=== PATIENT | female | born 1980 | race Caucasian/White ===

== ENCOUNTER → 2016-11-19 | Outpatient (CLI) | payer OTHER ==
--- NOTE | 2016-11-19 11:21 | US ---
EXAMINATION TYPE: US thyroid st tissue head/neck DATE OF EXAM: 11/19/2016 COMPARISON: 01-28 CLINICAL HISTORY: E04.1 Thyroid nodule. F/U GLAND SIZE: Right Lobe: 4.9 x 1.6 x 1.8 cm Overall Parenchyma: homogenous Left Lobe: 4.8 x 1.2 x 1.5 cm Overall Parenchyma: homogeneous Isthmus Thickness: 0.3 cm NODULES RIGHT: # of nodules measured on right: 1 1. 0.9 X 0.7 x 0.7 cm hypoechoic solid nodule at the mid pole with well-defined margins; This nodu le is wider than tall and shows intranodular vascularity. Prior size: 0.9 x 0.6 x 0.8 cm LEFT: # of nodules measured on left: 3 1. 0.9 X 0.5 x 0.7 cm hypoechoic solid nodule at the mid pole with well-defined margins; This nodu le is wider than tall and shows intranodular vascularity. Prior size: 0.9 x 0.5 x 0.9 cm 2. 0.8 X 0.4 x 0.6 cm hypoechoic mixed nodule at the lower pole with well-defined margins; This nod ule is wider than tall and shows intranodular vascularity. Prior size: 0.8 x 0.5 x 0.8 cm 3. 0.4 X 0.3 x 0.4 cm hypoechoic solid nodule at the lower pole with well-defined margins; This nod ule is wider than tall and shows intranodular vascularity. Prior size: 0.4 x 0.3 x 0.4 cm ISTHMUS: # of nodules measured in the isthmus: 0 Bilateral neck scanned, no evidence of lymphadenopathy. Stable nodules bilaterally IMPRESSION: Nonspecific nodularity is seen bilaterally and is essentially unchanged.
== END | disposition home or self-care (01) ==
LOC: RADUSWWP 10:22
PROVIDERS: ATTEND Otolaryngology
DX: E04.2 Nontoxic multinodular goiter (principal)
CPT/HCPCS: 76536

== ENCOUNTER → 2016-12-21 | Outpatient (CLI) | payer OTHER ==
--- NOTE | 2016-12-21 12:20 | US ---
EXAMINATION TYPE: US abdomen complete DATE OF EXAM: 12/21/2016 COMPARISON: NONE CLINICAL HISTORY: 36-year-old female K59.00 Constipation, R10.11 RUQ Pain. TECHNIQUE: Multiple sonographic images of the abdomen are obtained. FINDINGS: Liver Length: 11.0 cm Gallbladder Wall: 0.2 cm CBD: 0.3 cm Spleen: 9.4 cm Right Kidney: 9.3 x 3.3 x 4.9 cm Left Kidney: 9.2 x 4.7 x 4.7 cm Pancreas: wnl Liver: wnl Gallbladder: wnl Evidence for sonographic Allen's sign: No CBD: wnl Spleen: wnl Right Kidney: No hydronephrosis. Left Kidney: Mild pelvicaliectasis. This kidney is not as well-visualized. Upper IVC: wnl Abd Aorta: bifurcation obscured by overlying bowel gas IMPRESSION: 1. Mild left-sided pelvicaliectasis. This may be transient. Short interval follow-up can be considere d. Correlate to exclude any symptoms of renal colic. 2. Otherwise, no specific abnormality seen in the abdomen.
== END ==
LOC: RADUSMAIN 09:36
PROVIDERS: ATTEND Family Medicine
DX: N13.30 Unspecified hydronephrosis (principal)
CPT/HCPCS: 76700

== ENCOUNTER → 2017-01-07 | Outpatient (CLI) | payer OTHER ==
--- NOTE | 2017-01-07 09:33 | NM ---
EXAMINATION TYPE: NM hepatobiliary w EF DATE OF EXAM: 01/07/2017 COMPARISON: Ultrasound 12/21/2016 HISTORY: 36 year-old female right upper quadrant pain TECHNIQUE: After the intravenous administration of 5.36 mCi Tc 99m Mebrofenin hepatobiliary scintigra phy is performed. Immediate images post injection. FINDINGS: There is satisfactory initial accumulation of tracer by the liver. The gallbladder is visualized wit hin 6 minutes. The small bowel activity is noted after 60 minutes once Ensure is ingested. At one ho ur 8 ounces of oral Ensure plus is given to mimic CCK and gallbladder ejection fraction is calculated at 22 %, which is diminished. IMPRESSION: 1. No evidence for acute cholecystitis. 2. Diminished gallbladder ejection fraction. Given the normal appearance of the gallbladder on 017, findings probably reflect biliary dyskinesia.
== END | disposition home or self-care (01) ==
LOC: RADNMMAIN 07:06
PROVIDERS: ATTEND Family Medicine
DX: R10.11 Right upper quadrant pain (principal)
CPT/HCPCS: 78226; A9537

== ENCOUNTER 2017-03-25 07:45 | Day surgery (SDC) | payer OTHER ==
[2017-03-17 10:56] VITALS: BMI 19.7
[~2017-03-25 07:45] MED LIST: CLINDAMYCIN 900 MG in DEXTROSE 5% IN WATER 50 ML IVPB ONE; DEXAMETHASONE SOD PHOSPHATE 10 MG/ML 1 ML VIAL IV ONE; GENTAMICIN 240 MG in SODIUM CHLORIDE 0.9% 100 ML IVPB ONE; HEPARIN SODIUM,PORCINE 5,000 UNIT/ML 1 ML VIAL SQ ONE; LACTATED RINGERS 1,000 ML IV SCH; MIDAZOLAM 2 MG/2 ML VIAL IV PRN; MORPHINE SULFATE 4 MG/ML SYRINGE IV PRN; ONDANSETRON 4 MG/2 ML VIAL IVP ONE; SCOPOLAMINE 1.5MG/72HR PATCH TRANSDERM ONE
[2017-03-25 08:21] VITALS: RESP 16
[2017-03-25] MEDS ORDERED: LIDOCAINE 1% 20 ML VIAL (10MG/ML) FOR IV START INTRADERMA ONE (08:30)
[2017-03-25] MEDS ORDERED: BUPIVACAINE (PF) 0.25% 30 ML VIAL SQ ONE ×4 (09:24→10:23)
[2017-03-25] MEDS ORDERED: NEOSTIGMINE 1 MG/ML 10 ML VIAL ONE (09:32)
[2017-03-25] MEDS ORDERED: GLYCOPYRROLATE 0.2 MG/ML 2 ML VIAL ONE (09:32)
[2017-03-25] MEDS ORDERED: PROPOFOL 10 MG/ML 20 ML VIAL IV ONE (09:32)
[2017-03-25] MEDS ORDERED: SUCCINYLCHOLINE CHLORIDE 100 MG/5 ML SYR IV ONE (09:32)
[2017-03-25] MEDS ORDERED: fentaNYL (PF) 50 MCG/ML 2 ML AMP ONE (09:32)
[2017-03-25] MEDS ORDERED: HYDROmorphone (PF) 1 MG/ML ONE (09:32)
[2017-03-25] MEDS ORDERED: ROCURONIUM BROMIDE 10 MG/ML 10 ML VIAL IV ONE (09:32)
[2017-03-25] MEDS ORDERED: LIDOCAINE 1% INJ 10MG/ML (20 ML MDV) ONE (09:32)
[2017-03-25] MEDS ORDERED: MIDAZOLAM 2 MG/2 ML VIAL ONE (09:32)
[2017-03-25] MEDS ORDERED: traMADol 50 MG TAB PO PRN (10:27)
[2017-03-25] MEDS ORDERED: NALOXONE 0.4 MG/ML 1 ML VIAL IV PRN (10:27)
--- NOTE | 2017-03-25 10:31 | P.OP ---
Date of Procedure: 03/25/17 Procedure(s) Performed: PREOPERATIVE DIAGNOSIS: Biliary dyskinesia POSTOPERATIVE DIAGNOSIS: Same PROCEDURE: Laparoscopic cholecystectomy SURGEON: Gaby EBL: Minimal see anesthesia record ANESTHESIA: Gen. COMPLICATIONS: None OPERATIVE PROCEDURE: The patient was brought and placed on the operating room table in the supine position. The patient was placed under general anesthesia at that time. The abdomen was prepped and draped in the usual sterile fashion. A small vertical infraumbilical incision was made. The fascia was grasped with the Orin forceps. The fascia was retracted anteriorly. The Veress needle was advanced into the peritoneal cavity. The saline drop test was normal. Insufflation took place up to 15 mmHg. A 5 mm optical trocar was advanced and the peritoneal cavity. 2 additional 5 mm trochars were placed in the right upper quadrant under direct visualization. A 10 mm trocar was advanced into the epigastric incision site. This was later switched to a 12 mm trocar. The gallbladder was retracted superiorly and laterally. The peritoneum overlying the infundibulum was bluntly dissected. The patient's cystic duct was visualized. The junction between the cystic duct common and hepatic duct was identified. The critical view was achieved. The cystic duct was slightly distended. The cystic duct was then divided after placement of 3 12 mm clips on the patient's side and one on the specimen side. The cystic artery was identified and clipped as well. A small vessel was seen along the gallbladder fossa and clipped as well. The gallbladder was then removed from the liver bed using electrocautery. The gallbladder was then removed from the epigastric trocar site with an Endo Catch bag. The gallbladder fossa was irrigated with saline. There was no evidence of any bleeding or biliary drainage seen. The trochars were then removed. The fascia at the 12 millimeter site was closed using a Zeus Ji 0 Vicryl stitch. The skin at all 4 sites was closed using a 4-0 Monocryl stitch. At the end of this procedure the sponge and needle counts were correct. DISPOSITION: Stable to the recovery room
[2017-03-25 10:56] VITALS: TEMP 98.2
[2017-03-25] MEDS ORDERED: HYDROmorphone 0.5 MG/0.5 ML SYRINGE IVP ONE (11:15)
[2017-03-25] MEDS ORDERED: ONDANSETRON 4 MG/2 ML VIAL IVP ONE (11:18)
[2017-03-25] MEDS ORDERED: diphenhydrAMINE 50 MG/ML 1 ML VIAL IVP ONE (11:31)
[2017-03-25] MEDS ORDERED: IV FLUID CONTINUATION 1,000 ML IV ONE (12:59)
[2017-03-25] MEDS ORDERED: LACTATED RINGERS 1,000 ML IV ONE (13:18)
[2017-03-25] MEDS ORDERED: METOCLOPRAMIDE 5 MG/ML 2 ML VIAL IVP ONE (13:22)
[2017-03-25] MEDS ORDERED: traMADol 50 MG TAB PO ONE (14:17)
[2017-03-25 15:03] VITALS: BP 113/72; PULSE 73
== END 2017-03-25 15:04 | disposition home or self-care (01) ==
LOC: OR 07:45
PROVIDERS: ATTEND Surgery
DX: K81.1 Chronic cholecystitis (principal); J45.909 Unspecified asthma, uncomplicated; Z85.820 Personal history of malignant melanoma of skin; Z88.6 Allergy status to analgesic agent; Z88.0 Allergy status to penicillin; Z88.2 Allergy status to sulfonamides; Z88.8 Allergy status to other drugs, medicaments and biological substances; Z79.899 Other long term (current) drug therapy
CPT/HCPCS: 81025; 88304; 47562; J2250; J1200; J1644; J1100; J2710; J2765; J2405; J2001; J3010; J1580; J1170 ×2; J0330; J2704

== ENCOUNTER → 2018-02-09 | Outpatient (CLI) | payer OTHER ==
--- NOTE | 2018-02-09 12:50 | US ---
EXAMINATION TYPE: US thyroid st tissue head/neck DATE OF EXAM: 02/09/2018 COMPARISON: 11/19/2016 CLINICAL HISTORY: E04.1 Thyroid Nodule. Follow up thyroid nodules, tiredness GLAND SIZE: Right Lobe: 4.4 x 1.5 x 1.7 cm Overall Parenchyma: homogenous Left Lobe: 4.8 x 1.4 x 1.6 cm Overall Parenchyma: homogeneous Isthmus Thickness: 0.2 cm NODULES RIGHT: # of nodules measured on right: 1 1. 1.0 X 0.7 x 0.8 cm hypoechoic solid nodule at the mid pole with well-defined margins; . This no dule is wider than tall and shows intranodular vascularity. Prior size: 0.9 x 0.7 x 0.7 cm LEFT: # of nodules measured on left: 3 1. 0.9 X 0.6 x 0.6 cm hypoechoic solid nodule at the mid pole with well-defined margins; . This no dule is wider than tall and shows intranodular vascularity. Prior size: 0.9 x 0.5 x 0.7 cm 2. 0.7 X 0.5 x 0.6 cm hypoechoic mixed nodule at the lower pole with well-defined margins; . This n odule is wider than tall and shows intranodular vascularity. Prior size: 0.8 x 0.4 x 0.6 cm 3. 0.5 X 0.3 x 0.4 cm hypoechoic solid nodule at the lower pole with well-defined margins; . This n odule is wider than tall and shows intranodular vascularity. Prior size: 0.4 x 0.3 x 0.4 cm ISTHMUS: # of nodules measured in the isthmus: 0 Bilateral neck scanned, no evidence of lymphadenopathy. IMPRESSION: Nonspecific thyroid nodularity. Stable.
== END | disposition home or self-care (01) ==
LOC: RADUSWWP 12:07
PROVIDERS: ATTEND Otolaryngology
DX: E04.2 Nontoxic multinodular goiter (principal)
CPT/HCPCS: 76536

== ENCOUNTER → 2019-04-17 | Outpatient (CLI) | payer OTHER ==
--- NOTE | 2019-04-17 13:40 | US ---
EXAMINATION TYPE: US thyroid st tissue head/neck DATE OF EXAM: 04/17/2019 COMPARISON: US 02/09/2018 CLINICAL HISTORY: E04.1 nontoxic nodule. Follow up GLAND SIZE: Right Lobe: 4.3 x 1.3 x 1.2 cm Overall Parenchyma: homogenous Left Lobe: 5.3 x 1.2 x 1.4 cm Overall Parenchyma: homogeneous Isthmus Thickness: 0.2 cm NODULES RIGHT: # of nodules measured on right: 1 1. 0.9 X 0.6 x 0.8 cm hypoechoic mixed nodule at the mid pole with well-defined margins; . This no dule is wider than tall and shows intranodular vascularity. Prior size: 1.0 X 0.7 x 0.8 cm LEFT: # of nodules measured on left: 2- Innumerable subcentimeter nodules visualized, largest 2: 1. 0.9 X 0.5 x 0.6 cm hypoechoic solid nodule at the mid pole with well-defined margins; . This no dule is wider than tall and shows intranodular vascularity. Prior size: 0.9 X 0.6 x 0.6 cm 2. 0.7 X 0.4 x 0.7 cm hypoechoic mixed nodule at the mid pole with well-defined margins; . This nod ule is wider than tall and shows intranodular vascularity. Prior size: 0.7 X 0.5 x 0.6 cm ISTHMUS: # of nodules measured in the isthmus: 0 Bilateral neck scanned, no evidence of lymphadenopathy. IMPRESSION: 1. Bilateral subcentimeter nodules
== END | disposition home or self-care (01) ==
LOC: RADUSWWP 10:20
PROVIDERS: ATTEND Otolaryngology
DX: E04.2 Nontoxic multinodular goiter (principal)
CPT/HCPCS: 76536

== ENCOUNTER → 2020-10-29 | Outpatient (CLI) | payer OTHER ==
[2020-10-29 11:13] LABS: Basophils # (A) 0.1 k/uL (0-0.2); Basophils % (A) 1 %; Eosinophils # (A) 0.8 k/uL (0-0.7); Eosinophils % (A) 9 %; HCT 43.9 % (34.0-46.0); HGB 14.2 gm/dL (11.4-16.0); Lymphocytes % (A) 12 %; MCH 31.5 pg (25.0-35.0); MCHC 32.4 g/dL (31.0-37.0); MCV 97.4 fL (80.0-100.0); Mean Platelet Volume 6.6; Monocytes # (A) 0.7 k/uL (0-1.0); Monocytes % (A) 8 %; Neutrophils # (A) 5.6 k/uL (1.3-7.7); Neutrophils % (A) 67 %; Platelet Count 264 k/uL (150-450); WBC 8.3 k/uL (3.8-10.6)
== END | disposition home or self-care (01) ==
LOC: LABPAT 10:10
PROVIDERS: ATTEND Obstetrics & Gynecology
DX: Z01.812 Encounter for preprocedural laboratory examination (principal); N92.0 Excessive and frequent menstruation with regular cycle; N84.0 Polyp of corpus uteri
CPT/HCPCS: 36415; 85025

== ENCOUNTER 2020-11-04 08:20 | Day surgery (SDC) | payer OTHER ==
[2020-10-31 09:07] VITALS: BMI 20.5
--- NOTE | 2020-11-03 14:51 | HP ---
HISTORY AND PHYSICAL REASON FOR ADMISSION: Surgery dated 11/04/2020. HISTORY: This is a 40-year-old 3, para 3-0-0-3 woman with a history of dysfunctional uterine bleeding and findings of endometrial polyp on pelvic ultrasound. Ultrasound dated 07/09/2020, had findings of a 0.9 x 0.9 x 0.6 cm endometrial structure consistent with endometrial polyps. She is also noted to have 2.6 cm and 1.8 cm left ovarian hemorrhagic cyst. She is scheduled to undergo diagnostic hysteroscopy with D and C and polypectomy. Due to her longstanding history of menorrhagia, she is also going to undergo NovaSure endometrial ablation for cycle of management. ALLERGIES: NAPROXEN CAUSES FACE SWELLING. NSAIDS CAUSES FACE SWELLING. PENICILLIN CAUSES RASH AND HIVES. SULFA CAUSES RASH AND HIVES. TRAMADOL CAUSES NAUSEA AND VOMITING. ZYRTEC CAUSES FACIAL SWELLING. MEDICATIONS: Allergy injections, Benadryl p.r.n., probiotics daily. PAST MEDICAL HISTORY: Asthma, IBS, history of melanoma. PAST SURGICAL HISTORY: Cholecystectomy, melanoma excision in 2001 and 2008, cervical LEEP procedure 2002. 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 Her partner has had a vasectomy. She has a remote history of abnormal Pap smear and LEEP procedure. FAMILY HISTORY: Significant for breast cancer in a grandmother. SOCIAL HISTORY: Negative for tobacco, alcohol, and drug use. 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 REVIEW OF SYSTEMS: A complete review of systems is negative except for that menstrual history described above. PHYSICAL EXAM: VITAL SIGNS: Blood pressure 106/82, pulse 74, weight 122 pounds, height 5 feet 3 inches. GENERAL: This is a pleasant female in no obvious distress. HEENT exam is unremarkable and was negative for lymphadenopathy and thyromegaly. LUNGS: Clear to auscultation bilaterally. HEART has a regular rate and rhythm. ABDOMEN is slim, soft and nontender with no rebound, no guarding and no flank pain. On pelvic examination, she has normal female external genitalia without lesions or irritation. The uterus is small, freely mobile and in the midline with no palpable adnexal abnormalities. NEUROLOGIC: The patient has no gross neurologic deficits. Mood and affect are appropriate. ASSESSMENT: This is a 40-year-old 3, para 3 woman with findings of endometrial polyp on ultrasound as well as history of dysfunctional uterine bleeding. She is scheduled to undergo diagnostic hysteroscopy with D and C, polypectomy as well as NovaSure endometrial ablation. This procedure, anticipated hospital course, and recovery time have been reviewed. Risks were reviewed and include, but are not limited to bleeding, infection, uterine perforation with damage to internal structures including bowel, bladder, blood vessels or nerves, the possible risk of ongoing bleeding. Patient understands that she should not attempt pregnancies following this procedure. Her has had a vasectomy. All questions were answered and consent was obtained. She is scheduled for the above-named procedure on 11/04/2020. MMODL / IJN: [id number] /
[~2020-11-04 08:20] MED LIST changes: -CLINDAMYCIN 900 MG in DEXTROSE 5% IN WATER 50 ML IVPB ONE; -DEXAMETHASONE SOD PHOSPHATE 10 MG/ML 1 ML VIAL IV ONE; +DEXAMETHASONE SOD PHOSPHATE 4 MG/ML 1 ML VIAL IV ONE; -GENTAMICIN 240 MG in SODIUM CHLORIDE 0.9% 100 ML IVPB ONE; -HEPARIN SODIUM,PORCINE 5,000 UNIT/ML 1 ML VIAL SQ ONE; +HYDROmorphone 0.5 MG/0.5 ML SYRINGE IVP PRN; -LACTATED RINGERS 1,000 ML IV SCH; +LIDOCAINE 1% (10MG/ML) FOR IV START INTRADERMA PRN; -MIDAZOLAM 2 MG/2 ML VIAL IV PRN; -MORPHINE SULFATE 4 MG/ML SYRINGE IV PRN; +Pre Op ABX Message 1 EACH MISC MISCELLANE ONE
[2020-11-04] MEDS: LACTATED RINGERS 1,000 ML IV SCH ×3 (08:58→13:27)
[2020-11-04] MEDS ORDERED: fentaNYL (PF) 50 MCG/ML 2 ML AMP ONE (10:16)
[2020-11-04] MEDS ORDERED: MIDAZOLAM 2 MG/2 ML VIAL ONE (10:16)
[2020-11-04] MEDS ORDERED: KETOROLAC 15 MG/ML 1 ML VIAL ONE (10:16)
[2020-11-04] MEDS ORDERED: PROPOFOL 10 MG/ML 20 ML VIAL IV ONE (10:16)
[2020-11-04] MEDS ORDERED: LIDOCAINE 1% INJ 10MG/ML (20 ML MDV) ONE (10:16)
[2020-11-04] MEDS ORDERED: LIDOCAINE 1%-EPI 1:100,000 20 ML VIAL SUBMUCOSAL ONE ×2 (10:29→10:36)
--- NOTE | 2020-11-04 11:03 | P.OP ---
Preoperative Diagnosis: Dysfunctional uterine bleeding Possible endometrial polyp Postoperative Diagnosis: Same Procedure(s) Performed: Diagnostic hysteroscopy, dilation and curettage, NovaSure endometrial ablation Anesthesia: MAC Surgeon: Jazmin Nino Estimated Blood Loss (ml): 5 IV fluids (ml): 500 Urine output (ml): 50 Pathology: other (Endometrial curettings) Condition: stable Disposition: PACU Indications for Procedure: Dysfunctional uterine bleeding and finding of possible endometrial polyps on pelvic ultrasound Operative Findings: Fluffy endometrium with no distinct intracavitary lesions consistent with polyp. Description of Procedure: After the patient and her were met in the preoperative holding area and all questions were answered, she was taken to the operating room where anesthetic was administered without incident. She was in positioned, prepped and draped in the dorsal lithotomy position. Exam under anesthetic was undertaken. The bladder was drawn then drained for approximately 50 mL of clear urine. A weighted speculum was placed in the vagina. The cervix was grasped anteriorly with a single-tooth tenaculum. Paracervical block with lidocaine plus epinephrine was placed. The uterus was sounded to 9.5 cm. The cervix was then sequentially dilated to allow for passage of the diagnostic hysteroscope. The hysteroscope was introduced and there is a large amount of clot and debris in the uterine cavity. After this cleared of their was very fluffy and irregular endometrium but no gross intracavitary lesions consistent with polyp. The right and left tubal ostia were visualized. The hysteroscope was removed and the cervix was further dilated to allow for passage of the small sharp banjo curet. The uterine cavity was circumferentially curettaged with a moderate amount of tissue obtained. Following the D&C the NovaSure ablation device was then introduced into the uterine cavity. The length was 5.5 cm with a width of 4.1 cm. The cavity assessment was passed. The device was enabled for a treatment cycle of 73 seconds at a power of 143 W. Following cessation of the treatment cycle the device was removed. The diagnostic hysteroscope was reintroduced. Complete desiccation of the endometrium was appreciated. Hysteroscope was removed. Tenaculum was removed. The cervix was observed and no active bleeding was noted. All instruments were then removed from the ar chinmay. All counts are reported to me as correct by the operating room staff. The patient was awoken from anesthetic without incident and transported to recovery in good condition.
[2020-11-04 11:05] VITALS: TEMP 97
[2020-11-04] MEDS ORDERED: LACTATED RINGERS 1,000 ML IV ONE (11:34)
[2020-11-04] MEDS ORDERED: ONDANSETRON 4 MG/2 ML VIAL ONE (12:05)
[2020-11-04] MEDS ORDERED: ONDANSETRON 4 MG/2 ML VIAL IVP ONE (12:08)
[2020-11-04] MEDS: fentaNYL (PF) 50 MCG/ML 2 ML AMP ONE ×2 (12:50→12:53)
[2020-11-04 13:25] VITALS: BP 106/65; PULSE 73; RESP 18
== END 2020-11-04 13:43 | disposition home or self-care (01) ==
LOC: OR 08:20
PROVIDERS: ATTEND Obstetrics & Gynecology
DX: N84.0 Polyp of corpus uteri (principal); J45.909 Unspecified asthma, uncomplicated; K58.9 Irritable bowel syndrome, unspecified; G43.909 Migraine, unspecified, not intractable, without status migrainosus; Z85.820 Personal history of malignant melanoma of skin; Z88.0 Allergy status to penicillin; Z88.2 Allergy status to sulfonamides; Z88.8 Allergy status to other drugs, medicaments and biological substances; Z80.3 Family history of malignant neoplasm of breast; Z79.01 Long term (current) use of anticoagulants
CPT/HCPCS: 58563; 81025; 88305; J2250; J1100; J2405; J2001; J3010; J1885; J2704; J1170; J1790

== ENCOUNTER → 2023-01-21 | Outpatient (CLI) | payer OTHER ==
--- NOTE | 2023-01-22 12:36 | MR ---
EXAMINATION TYPE: MR brain wo/w con DATE OF EXAM: 01/21/2023 12:18 PM CLINICAL INDICATION:Female, 42 years old with history of R51.9 HEADACHE, UNSPECIFIED;, Headache COMPARISON: None TECHNIQUE: Multi planar, multi sequence imaging was performed through the brain including: T1, T2, In version recovery, susceptibility weighted imaging and gradient echo imaging and Diffusion weighted im aging. The patient was then given intravenous contrast and multi planar, T1 fat-saturation images wer e obtained. IV Contrast: 5.5 cc Gadavist FINDINGS: The tran-white junctions, ventricular system, basal cisterns appear unremarkable. Diffusion-weighted imaging shows no evidence of restricted diffusion to suggest acute/subacute infarct. Intracranial ar terial flow voids are maintained. Midline structures show no abnormality. The susceptibility weighted images do not reveal any evidence for micro-hemorrhage. After administration of gadolinium, no abnor mal enhancement is seen. The bone marrow signal is within normal limits. Paranasal sinuses and mastoid air cells: No significant paranasal sinus disease. Visualized orbits: Orbital contents are intact. IMPRESSION: No evidence of intracranial mass, acute/subacute infarct, or abnormal enhancement.
== END | disposition home or self-care (01) ==
LOC: RADMRIMAIN 11:32
PROVIDERS: ATTEND Family Medicine
DX: R51.9 Headache, unspecified (principal)
CPT/HCPCS: 70553; A9585

== ENCOUNTER → 2023-06-17 | Outpatient (CLI) | payer OTHER ==
--- NOTE | 2023-06-17 12:22 | US ---
EXAMINATION TYPE: US thyroid st tissue head/neck DATE OF EXAM: 06/17/2023 COMPARISON: 04/17/2019 CLINICAL INDICATION: Female, 42 years old with history of E04.2 MULTINODUL GOITER; follow up on known bilateral nodules GLAND SIZE: Right Lobe: 4.2 x 1.9 x 1.6 cm Overall Parenchyma: heterogeneous Left Lobe: 4.4 x 1.5 x 1.2 cm Overall Parenchyma: heterogeneous Isthmus Thickness: 0.3 cm NODULES RIGHT: # of nodules measured on right: 2 1. 0.9 X 0.8 x 0.8 cm, , solid nodule, which is wider than tall, with smooth margin. Prior size: 0.9 x 0.6 x 0.8 cm 2. 0.6 x 0.3 x 0.3cm hypoechoic nodule that is wider than tall with well defined margins. Not measu red on prior study. LEFT: # of nodules measured on left: 2 1. 0.9 X 0.5 x 0.6 cm, solid nodule, which is wider than tall, with smooth margins. Prior size: 0.9 x 0.6 x 0.6 cm 2. 0.5 X 0.4 x 0.4 cm, solid nodule with smooth margins. Prior size: 0.7 x 0.4 x 0.7 cm ISTHMUS: # of nodules measured in the isthmus: 0 Bilateral neck scanned, no evidence of lymphadenopathy. IMPRESSION: Stable multinodular goiter with 2 subcentimeter nodules in each lobe of the thyroid gland. 2017 ACR TI-RADS LEVEL: TR 4 *Highest TI-RADS level nodule reported
== END | disposition home or self-care (01) ==
LOC: RADUSWWP 08:25
PROVIDERS: ATTEND Otolaryngology
DX: E04.2 Nontoxic multinodular goiter (principal)
CPT/HCPCS: 76536

== ENCOUNTER → 2023-07-05 | Outpatient (CLI) | payer OTHER ==
[2023-07-05 15:40] LABS: HCT 43.2 % (37.2-46.3); MCH 31.5 pg (27.0-32.0); MCHC 32.4 g/dL (32.0-37.0); MCV 97.3 FL (80.0-97.0); Mean Platelet Volume 9.7 FL (9.5-12.2); NRBC Per 100 WBC 0 X 10*3/uL (0.00-0.01); Platelet Count 296 X 10*3/uL (140-440); RBC 4.44 X 10*6/uL (4.10-5.20); RDW 12.3 % (11.5-14.5); WBC 5.08 X 10*3/uL (4.50-10.00)
[2023-07-05 16:16] LABS: Estradiol 46.5 pg/mL; T4, Free (Free Thyroxine) 1.31 ng/dL (0.80-1.80); Testosterone 11.6 ng/dL (9.01-47.94)
[2023-07-05 16:44] LABS: Follicle Stimulating Hormone 41.7 mIU/mL
== END | disposition home or self-care (01) ==
LOC: LABWHC1 09:42
PROVIDERS: ATTEND Obstetrics & Gynecology
DX: N93.8 Other specified abnormal uterine and vaginal bleeding (principal)
CPT/HCPCS: 36415; 82670; 83001; 84144; 84403; 84439; 84443; 84481; 85027

== ENCOUNTER → 2023-07-13 | Outpatient (CLI) | payer OTHER | END | disposition home or self-care (01) | LOC: LABWHC1 09:42 | PROVIDERS: ATTEND Otolaryngology | DX: E04.2 Nontoxic multinodular goiter (principal) | CPT/HCPCS: 36415; 86376 ==

== ENCOUNTER → 2023-07-19 | Outpatient (CLI) | payer OTHER ==
--- NOTE | 2023-07-20 18:35 | MM ---
Reason for Exam: Screening (asymptomatic). Patient History: Menarche at age 10. First Full-Term at age 22. Perimenopausal. Other cancer. Maternal grandmother had breast cancer at or over age 50. Last menstrual period: 06/27/2023 Risk Values: Conchis 5 year model risk: 0.7%. NCI Lifetime model risk: 8.7%. Prior Study Comparison: No prior studies available for comparison. Tissue Density: The breasts are heterogeneously dense, which may obscure small masses. Findings: Analyzed By CAD. Diffuse bilateral punctate calcifications. Nodular asymmetric density lower inner quadrant left breast for which further evaluation is recommended. Otherwise, no significant mass or other discrete abnormality is seen. Overall Assessment: Incomplete: need additional imaging evaluation, BI-RAD 0 Management: Special View Mammogram of the left breast. Diagnostic Breast Ultrasound of the left breast. . [facility] will attempt to contact patient to return for supplemental views and ultrasound if indicated. Electronically signed and approved by: May Acosta M.D. Radiologist
== END | disposition home or self-care (01) ==
LOC: RADMAMWWP 08:35
PROVIDERS: ATTEND Obstetrics & Gynecology
DX: Z12.31 Encounter for screening mammogram for malignant neoplasm of breast (principal); Z80.3 Family history of malignant neoplasm of breast
CPT/HCPCS: 77067

== ENCOUNTER → 2023-08-04 | Outpatient (CLI) | payer OTHER ==
--- NOTE | 2023-08-04 09:14 | MM ---
Reason for Exam: Additional evaluation requested from abnormal screening. Last screening mammogram was performed less than 1 month ago. Patient History: Menarche at age 10. First Full-Term at age 22. Perimenopausal. Maternal grandmother had breast cancer at or over age 50. Risk Values: Conchis 5 year model risk: 0.7%. NCI Lifetime model risk: 8.7%. Prior Study Comparison: 07/19/2023 Bilateral MG screening mammo w CAD, [facility]. Tissue Density: Left: The breasts are heterogeneously dense, which may obscure small masses. Findings: Analyzed By CAD. Persistent nodular density inner lower left breast 4 to 5:00 position 4.2 cm from the nipple measuring 1.2 cm persists. Ultrasound is recommended. Overall Assessment: Incomplete: need additional imaging evaluation, BI-RAD 0 Management: Diagnostic Breast Ultrasound of the left breast. . Results were given to the patient verbally at the time of exam. Patient should continue monthly self-breast exams. A clinical breast exam by your physician is recommended on an annual basis. This exam should not preclude additional follow-up of suspicious palpable abnormalities. Note on Conchis scores and lifetime risk: 1. A Conchis score greater than 3% is considered moderate risk. If this is the case, consider specialist referral to assess eligibility for a risk reducing agent. 2. If overall lifetime risk for the development of breast cancer is 20% or higher, the patient may qualify for future screening with alternating mammogram and breast MRI. Electronically signed and approved by: Steve Fox M.D. Radiologis
--- NOTE | 2023-08-04 09:53 | USB ---
Reason for Exam: Additional evaluation requested from abnormal screening. Patient History: Menarche at age 10. First Full-Term at age 22. Perimenopausal. Maternal grandmother had breast cancer at or over age 50. Risk Values: Conchis 5 year model risk: 0.7%. NCI Lifetime model risk: 8.7%. Technique: Method: Targeted. Prior Study Comparison: 07/19/2023 Bilateral MG screening mammo w CAD, [facility]. Findings: The lower inner quadrant of the left breast, the axilla of the left breast and the retroareolar of the left breast were scanned. Simple cyst left 8:00 position 4 cm from the nipple measuring 1.2 cm. Additional cyst left 6:00 position 5 cm from the nipple measuring 5 mm. No solid masses appreciated. Overall Assessment: Benign, BI-RAD 2 Management: Screening Mammogram of both breasts in 1 year. A clinical breast exam by your physician is recommended on an annual basis and results should be correlated with mammographic findings. This exam should not preclude additional follow-up of suspicious palpable abnormalities. Results were given to the patient verbally at the time of exam. Electronically signed and approved by: Steve Fox M.D. Radiologis
== END | disposition home or self-care (01) ==
LOC: RADMAMWWP 08:43
PROVIDERS: ATTEND Obstetrics & Gynecology
DX: R92.8 Other abnormal and inconclusive findings on diagnostic imaging of breast (principal); Z80.3 Family history of malignant neoplasm of breast
CPT/HCPCS: 77061; 77065

== ENCOUNTER → 2023-08-31 | Outpatient (CLI) | payer OTHER ==
[2023-08-31 20:07] LABS: Testosterone 35.5 ng/dL (9.01-47.94)
[2023-08-31 20:21] LABS: Follicle Stimulating Hormone 13.1 mIU/mL
== END | disposition home or self-care (01) ==
LOC: LABWHC1 14:11
PROVIDERS: ATTEND Obstetrics & Gynecology
DX: R10.2 Pelvic and perineal pain (principal)
CPT/HCPCS: 36415; 82670; 83001; 84144; 84403

== ENCOUNTER → 2023-11-28 | Outpatient (CLI) | payer OTHER ==
[2023-11-28 15:24] LABS: Estradiol 22.5 pg/mL
[2023-11-28 15:25] LABS: Follicle Stimulating Hormone 16.1 mIU/mL
== END | disposition home or self-care (01) ==
LOC: LABWHC1 10:12
PROVIDERS: ATTEND Obstetrics & Gynecology
DX: N93.8 Other specified abnormal uterine and vaginal bleeding (principal)
CPT/HCPCS: 36415; 82670; 83001; 84144

== ENCOUNTER → 2024-07-23 | Outpatient (CLI) | payer OTHER ==
[2024-07-23 19:32] LABS: Follicle Stimulating Hormone 17.4 mIU/mL
== END | disposition home or self-care (01) ==
LOC: LABWHC1 11:25
PROVIDERS: ATTEND Obstetrics & Gynecology
DX: N93.8 Other specified abnormal uterine and vaginal bleeding (principal); N95.9 Unspecified menopausal and perimenopausal disorder
CPT/HCPCS: 36415; 82670; 83001; 84144